=== PATIENT | male | born 1965 | race Caucasian/White ===

== ENCOUNTER 2023-04-10 17:59 | Emergency (ER) | payer OTHER ==
[2023-04-10 18:09] VITALS: BP 146/93; PULSE 72; RESP 16; TEMP 98.2; BMI 25.8
== END 2023-04-10 18:45 | disposition home or self-care (01) ==
LOC: FER 17:59
DX: M76.62 Achilles tendinitis, left leg (principal); M25.572 Pain in left ankle and joints of left foot
CPT/HCPCS: 99282-25